=== PATIENT | female | born 1955 | race Caucasian/White ===

== ENCOUNTER → 2016-05-24 | Outpatient (CLI) | payer MEDICAID | END | disposition home or self-care (01) | LOC: RAD.S 05-23 09:00 | DX: R10.9 Unspecified abdominal pain (principal) ==

== ENCOUNTER → 2016-08-17 | Outpatient (CLI) | payer MEDICAID | END | disposition home or self-care (01) | LOC: RAD.S 10:30 | DX: M25.561 Pain in right knee (principal) ==